=== PATIENT | male | born 1935 | race Caucasian/White ===

== ENCOUNTER 2018-04-20 04:59 | Observation (INO) | payer MEDICARE, OTHER ==
[~2018-04-20] VITALS: Ht 167.6 cm; Wt 80.2 kg
[~2018-04-20 04:59] MED LIST: ALBU90OI INH; LISI5 PO; METO25ER PO
[2018-04-20] MEDS ORDERED: GABA300 PO (05:14)
[2018-04-20] MEDS ORDERED: TRAZ100 PO (05:14)
[2018-04-20 05:45] LABS: BASOPHILS ABSOLUTE AUTO 0.05 K/mm3 (0.00-0.23); BASOPHILS PERCENT AUTO 0 % (0-2); EOSINOPHILS ABSOLUTE AUTO 0.03 K/mm3 (0.00-0.68); EOSINOPHILS PERCENT AUTO 0 % (0-6); Hematocrit 47.6 % (37.0-53.0); Hemoglobin 15.7 g/dL (13.5-17.5); IMMATURE GRAN ABSOLUTE AUTO 0.06 K/mm3 (0.00-0.10); IMMATURE GRAN PERCENT AUTO 1 % (0-1); LYMPHOCYTES ABSOLUTE AUTO 1.08 K/mm3 (0.84-5.20); LYMPHOCYTES PERCENT AUTO 9 % (21-46); MONOCYTES ABSOLUTE AUTO 0.49 K/mm3 (0.16-1.47); MONOCYTES PERCENT AUTO 4 % (4-13); Mean Corpuscular HGB 32.1 pg (26.0-34.0); Mean Corpuscular Volume 97 fL (80-100); Mean Platelet Volume 10.2 fL (9.1-12.4); NEUTROPHILS ABSOLUTE AUTO 10.55 K/mm3 (1.96-9.15); NEUTROPHILS PERCENT AUTO 86 % (41-73); Platelet Count 190 K/mm3 (150-400); RDW Coefficient Variation 13.1 % (11.7-14.2); RDW Standard Deviation 46.9 fL (35.1-46.3); Red Blood Cell Count 4.89 M/mm3 (4.30-5.90); White Blood Cell Count 12.26 K/mm3 (4.00-11.30)
[2018-04-20 06:04] LABS: Alanine Aminotransfer (ALT/SGP 24 U/L (12-78); Albumin, Blood 3.9 g/dL (3.4-5.0); Alk Phos 59 U/L (50-136); Anion Gap 8 mmol/L (6-16); Aspartate Aminotrans (AST/SGOT 19 U/L (12-37); Blood Urea Nitrogen 39 mg/dL (8-24); Bun/Creatinine Ratio 17.8 (12.0-20.0); CO2, Blood 24 mmol/L (21-32); Calcium, Blood 9.1 mg/dL (8.5-10.1); Chloride, Blood 107 mmol/L (98-108); Creatinine, Blood 2.19 mg/dL (0.60-1.20); Globulin, Blood 3.8 g/dL (2.2-4.0); Glomerular Filtration Rate 31 (60-); Glucose, Blood 140 mg/dL (70-99); Potassium, Blood 5.1 mmol/L (3.5-5.5); Sodium, Blood 139 mmol/L (136-145); Total Protein, Blood 7.7 g/dL (6.4-8.2); Troponin I <0.015 ng/mL (0.000-0.040)
[2018-04-20] MEDS ORDERED: CLOP75 PO (06:16)
[2018-04-20 06:36] LABS: International Normalized Ratio 1.02; Prothrombin Time Results 10.8 Sec (9.7-11.5)
[2018-04-20] MEDS ORDERED: [UNRECOGNIZED DRUG - CODE] PO (07:06)
[2018-04-20] MEDS ORDERED: ASPI81CH PO (07:48)
[2018-04-20] MEDS ORDERED: CEPH500 PO (11:22)
[2018-04-20] MEDS ORDERED: SACC250C PO (11:23)
--- NOTE | 2018-04-20 11:35 | NUR ---
PT TO DAY SURGERY VIA [facility]
--- NOTE | 2018-04-20 11:49 | NUR ---
History, Chart, Medications and Allergies reviewed before start of procedure. Patient confirms NPO status and agrees with scheduled surgery. Lungs clear T/O to Auscultation, THOUGH LIGHT AUDIBLE WHEEZES AT TIMES HEARD. PATIENT WILL LEAVE RIGHT HEARING DEVICE IN PLACE, STATES NO LONGER HAS A LEFT HEARING DEVICE BECAUSE IT QUIT WORKING SO HE QUIT WEARING IT. STATES NO FAMILY TO NOTIFY AT THIS TIME OF SURGERY IMPENDING. CLIP PREP AND CHLORHEXIDINE WIPE DONE BY RALEIGH CUMMINGS. NO JEWELRY IN PLACE AT THE TIME OF ADMIT TO [facility].
--- NOTE | 2018-04-20 11:54 | NUR ---
1150-NS IV TKO ADMINISTERED AT ADMIT TO [facility].
--- NOTE | 2018-04-20 12:09 | NUR ---
REPORT TO DOMINIK Junior RN.
--- NOTE | 2018-04-20 13:14 | NUR ---
04/20/18 1314 Vickie Baker PATIENT IS ON SCHEDULED ANTIBIOTICS.
--- NOTE | 2018-04-20 18:18 | NUR ---
SHIFT SUMMARY PT HAS DONE WELL SINCE SURGERY. SLOWLY ADVANCED DIET. DANGLING AT BEDSIDE. DENIES PAIN/N.V. ABD SITES WNL.
[2018-04-21 05:47] LABS: BASOPHILS ABSOLUTE AUTO 0.01 K/mm3 (0.00-0.23); BASOPHILS PERCENT AUTO 0 % (0-2); EOSINOPHILS PERCENT AUTO 0 % (0-6); Hematocrit 39.5 % (37.0-53.0); Hemoglobin 12.5 g/dL (13.5-17.5); IMMATURE GRAN ABSOLUTE AUTO 0.04 K/mm3 (0.00-0.10); IMMATURE GRAN PERCENT AUTO 0 % (0-1); LYMPHOCYTES ABSOLUTE AUTO 0.93 K/mm3 (0.84-5.20); LYMPHOCYTES PERCENT AUTO 7 % (21-46); MONOCYTES PERCENT AUTO 7 % (4-13); Mean Corpuscular HGB 31.8 pg (26.0-34.0); Mean Corpuscular HGB Conc 31.6 g/dL (31.5-36.5); Mean Platelet Volume 10.7 fL (9.1-12.4); NEUTROPHILS ABSOLUTE AUTO 10.81 K/mm3 (1.96-9.15); NEUTROPHILS PERCENT AUTO 85 % (41-73); Platelet Count 151 K/mm3 (150-400); RDW Coefficient Variation 13.2 % (11.7-14.2); RDW Standard Deviation 48.9 fL (35.1-46.3); Red Blood Cell Count 3.93 M/mm3 (4.30-5.90); White Blood Cell Count 12.69 K/mm3 (4.00-11.30)
[2018-04-21 05:48] LABS: Mean Corpuscular Volume 101 fL (80-100)
[2018-04-21 06:08] LABS: Bun/Creatinine Ratio 17.3 (12.0-20.0); Calcium, Blood 7.6 mg/dL (8.5-10.1); Creatinine, Blood 2.43 mg/dL (0.60-1.20); Potassium, Blood 5.3 mmol/L (3.5-5.5)
--- NOTE | 2018-04-21 06:10 | NUR ---
LYING IN SEMI FOWLERS WITH EYES CLOSED. DENIES PAIN OR FURTHER NEEDS AT THIS TIME. SAFETY MEASURES IN PLACE. WILL GIVE HAND OFF TO ONCOMING SHIFT USING SBAR.
[2018-04-21] MEDS ORDERED: GABA600 PO (08:44)
[2018-04-21] MEDS ORDERED: LISI5 PO (08:45)
[2018-04-21] MEDS ORDERED: TRAZ100 PO (08:50)
[2018-04-21] MEDS ORDERED: FLUT1DIS8 INH (08:51)
[2018-04-21] MEDS ORDERED: FISH OIL 1,001000 MG PO (08:53)
[2018-04-21] MEDS ORDERED: CENTURY ADULTS1 EACH PO (08:53)
[2018-04-21] MEDS ORDERED: VITAMIN D-32000 UNIT PO (08:54)
[2018-04-21] MEDS ORDERED: ATOR40TA PO (08:55)
[2018-04-21] MEDS ORDERED: INSULANPEN SC ×4 (08:55→08:59)
[2018-04-21] MEDS ORDERED: INSULANPEN (08:57)
[2018-04-21] MEDS ORDERED: CEPH500 PO (09:10)
[2018-04-21] MEDS ORDERED: SACC250C PO (09:11)
[2018-04-21] MEDS ORDERED: TYLENOL325 MG PO (09:13)
--- NOTE | 2018-04-21 12:41 | NUR ---
DISCHARGE SUMMARY PT LEFT FLOOR TO GO HOME WITH ALL PERSONAL POSSESSIONS INCLUDING DISCHARGE PACKET WITH EDUCATION FOR [employer] AND DIABETES MANAGEMENT. DISCHARGE INSTRUCTIONS GIVEN. PT REPORTED UNDERSTANDING THOSE INSTRUCTIONS INCLUDING FU APPT WITH PCP 1-24-2:30PM, FU WITH SURGEON IN 2 WKS, SPLINTING/ROLLING W/COUGH/ACTIVITY. IV DC'D.
== END 2018-04-21 13:05 | disposition home or self-care (01) ==
LOC: ER 04:59 → SURS 05:00 → ER 06:39 → SURS 07:30
PROVIDERS: Emergency Medicine; Family Medicine; Surgery; ADMIT Hospitalist
PROC: 0FT44ZZ Resection of Gallbladder, Percutaneous Endoscopic Approach (ICD-10-PCS; principal; 2018-04-20 11:45)
DX: K80.12 Calculus of gallbladder with acute and chronic cholecystitis without obstruction (principal); I12.9 Hypertensive chronic kidney disease with stage 1 through stage 4 chronic kidney disease, or unspecified chronic kidney disease; N18.3 Chronic kidney disease, stage 3 (moderate); E78.5 Hyperlipidemia, unspecified; J44.9 Chronic obstructive pulmonary disease, unspecified; Z85.528 Personal history of other malignant neoplasm of kidney; Z90.5 Acquired absence of kidney; Z87.891 Personal history of nicotine dependence; Z79.02 Long term (current) use of antithrombotics/antiplatelets; Z79.899 Other long term (current) drug therapy
CPT/HCPCS: 36415; 74176; 80048; 80053; 82947; 83605; 83690; 83735; 84484; 85025; 85610; 88304; 93005; 93010; 94640; 94760; 96361; 96365; 96375; 97110; 97161; 99285-25; C1729; G0378; J0696; J1100; J1170; J2270; J2370; J2405; J2543; J2710; J3010; J7030; J7120

== ENCOUNTER 2021-09-18 03:15 | Emergency (ER) | payer MEDICARE ==
[~2021-09-18] VITALS: Ht 172.7 cm; Wt 81.7 kg
[~2021-09-18 03:15] MED LIST changes: +ASPI81CH PO; +ATOR40TA PO; +CENTURY ADULTS1 EACH PO; +CEPH500 PO; +CLOP75 PO; +FISH OIL 1,001000 MG PO; +FLUT1DIS8 INH; +GABA300 PO; +GABA600 PO; +INSULANPEN; +INSULANPEN SC; +ONDA4 PO; +SACC250C PO; +TRAZ100 PO; +TYLENOL325 MG PO; +VITAMIN D-32000 UNIT PO; +[UNRECOGNIZED DRUG - CODE] PO
[2021-09-18 03:41] LABS: Base Excess Venous -5.5 mmol/L; Bicarbonate Venous 19.5 mmol/L (24.0-30.0); PCO2 Venous 51.7 mmHg (38-42); pH Blood Venous 7.24 (7.34-7.37)
[2021-09-18 03:45] LABS: BASOPHILS ABSOLUTE AUTO 0.03 K/mm3 (0.00-0.23); BASOPHILS PERCENT AUTO 0 % (0-2); EOSINOPHILS ABSOLUTE AUTO 0.01 K/mm3 (0.00-0.68); EOSINOPHILS PERCENT AUTO 0 % (0-6); Hematocrit 25.4 % (37.0-53.0); Hemoglobin 7.9 g/dL (13.5-17.5); IMMATURE GRAN ABSOLUTE AUTO 0.07 K/mm3 (0.00-0.10); IMMATURE GRAN PERCENT AUTO 1 % (0-1); LYMPHOCYTES ABSOLUTE AUTO 1.44 K/mm3 (0.84-5.20); LYMPHOCYTES PERCENT AUTO 11 % (21-46); MONOCYTES PERCENT AUTO 7 % (4-13); Mean Corpuscular HGB 31.5 pg (26.0-34.0); Mean Corpuscular HGB Conc 31.1 g/dL (31.5-36.5); Mean Corpuscular Volume 101 fL (80-100); Mean Platelet Volume 10.7 fL (9.1-12.4); NEUTROPHILS ABSOLUTE AUTO 11.07 K/mm3 (1.96-9.15); NEUTROPHILS PERCENT AUTO 81 % (41-73); Platelet Count 346 K/mm3 (150-400); RDW Coefficient Variation 13.5 % (11.7-14.2); RDW Standard Deviation 49.7 fL (35.1-46.3); Red Blood Cell Count 2.51 M/mm3 (4.30-5.90); White Blood Cell Count 13.62 K/mm3 (4.00-11.30)
[2021-09-18 04:16] LABS: Albumin, Blood 2.4 g/dL (3.4-5.0); Albumin/Globulin Ratio 0.7 (0.8-1.8); Bilirubin, Total 0.5 mg/dL (0.1-1.0); Bun/Creatinine Ratio 28.6 (12.0-20.0); Creatinine, Blood 2.87 mg/dL (0.60-1.20); Globulin, Blood 3.3 g/dL (2.2-4.0); Potassium, Blood 7.6 mmol/L (3.5-5.5); Total Protein, Blood 5.7 g/dL (6.4-8.2)
[2021-09-18 04:40] LABS: Influenza A, PCR NEGATIVE (NEGATIVE); Influenza B, PCR NEGATIVE (NEGATIVE); Resp Syncytial Virus, PCR NEGATIVE (NEGATIVE); SARS-Cov-2 (COVID-19) PCR, MMC NEGATIVE (NEGATIVE)
[2021-09-18 06:00] LABS: Base Excess Venous -8.8 mmol/L; Bicarbonate Venous 17.3 mmol/L (24.0-30.0); PCO2 Venous 45.7 mmHg (38-42); pH Blood Venous 7.22 (7.34-7.37)
[2021-09-18 06:01] LABS: International Normalized Ratio 1.23; Prothrombin Time Results 12.7 Sec (9.7-11.5)
== END 2021-09-18 06:56 | disposition short-term general hospital (02) ==
LOC: ER 03:15
PROVIDERS: Emergency Medicine
DX: J96.92 Respiratory failure, unspecified with hypercapnia (principal); J96.91 Respiratory failure, unspecified with hypoxia; J44.1 Chronic obstructive pulmonary disease with (acute) exacerbation; K92.2 Gastrointestinal hemorrhage, unspecified; D50.0 Iron deficiency anemia secondary to blood loss (chronic); E87.5 Hyperkalemia; A41.9 Sepsis, unspecified organism; J18.9 Pneumonia, unspecified organism; E87.2 Acidosis; I95.9 Hypotension, unspecified; E83.51 Hypocalcemia; I12.9 Hypertensive chronic kidney disease with stage 1 through stage 4 chronic kidney disease, or unspecified chronic kidney disease; N18.30 Chronic kidney disease, stage 3 unspecified; I25.10 Atherosclerotic heart disease of native coronary artery without angina pectoris; Z87.891 Personal history of nicotine dependence; Z79.899 Other long term (current) drug therapy; Z20.822 Contact with and (suspected) exposure to COVID-19
CPT/HCPCS: 0241U; 36415; 71045; 80053; 82803; 82947; 83605; 83690; 83880; 84132; 84145; 84484; 85025; 85610; 85730; 86850; 86900; 86901; 86923; 93005; 93010; 94640; 94644; 94660; 94664; A9270; C9113; J0456; J0610; J0696; J1815; J2354; J2405; J2930; J7030; J7050; J7120; P9016

== ENCOUNTER → 2022-07-11 | Outpatient (CLI) | payer MEDICARE ==
[2022-07-11 19:07] LABS: Percent Saturation 34.1 % (20.0-50.0)
== END | disposition home or self-care (01) ==
LOC: LAB SHORT 17:06 → LAB 17:06
PROVIDERS: Internal Medicine Hematology & Oncology
DX: D50.9 Iron deficiency anemia, unspecified (principal)
CPT/HCPCS: 82728; 83540; 83550

== ENCOUNTER → 2022-09-27 | Outpatient (CLI) | payer MEDICARE ==
[2022-09-27 14:28] LABS: Adenovirus F 40/41 Not Detected (NOT DETECT); Astrovirus Not Detected (NOT DETECT); Campylobacter Sp Not Detected (NOT DETECT); Cryptosporidium Not Detected (NOT DETECT); Cyclospora Cayetanensis Not Detected (NOT DETECT); E. Coli O157 Not Detected (NOT DETECT); Entamoeba Histolytica Not Detected (NOT DETECT); Enteroaggregative E. coli-EAEC Not Detected (NOT DETECT); Enteropathogenic E. coli-EPEC Not Detected (NOT DETECT); Enterotoxigenic E. coli-ETEC Not Detected (NOT DETECT); Giardia Lamblia Not Detected (NOT DETECT); Norovirus GI/GII Not Detected (NOT DETECT); Plesiomonas Shigelloides Not Detected (NOT DETECT); Rotavirus A Not Detected (NOT DETECT); Salmonella Sp Not Detected (NOT DETECT); Sapovirus Not Detected (NOT DETECT); Shiga Toxin-prod E. coli-STEC Not Detected (NOT DETECT); Shigella/Enteroin E. coli-EIEC Not Detected (NOT DETECT); Vibrio Cholerae Not Detected (NOT DETECT); Vibrio Sp Not Detected (NOT DETECT); Yersinia Enterocolitica Not Detected (NOT DETECT)
== END ==
LOC: LAB 11:25 → LAB SHORT 11:25
PROVIDERS: Internal Medicine Gastroenterology
DX: R19.7 Diarrhea, unspecified (principal)
CPT/HCPCS: 87507

== ENCOUNTER 2022-11-07 13:15 | Observation (INO) | payer MEDICARE ==
[~2022-11-07] VITALS: Ht 167.6 cm; Wt 72.1 kg
[~2022-11-07 13:15] MED LIST changes: +CALC.25 PO; +DUTA.5; +INSULANI; +TORSE20 PO
[2022-11-07 14:15] LABS: BASOPHILS ABSOLUTE AUTO 0.05 K/mm3 (0.00-0.23); BASOPHILS PERCENT AUTO 1 % (0-2); EOSINOPHILS ABSOLUTE AUTO 0.46 K/mm3 (0.00-0.68); EOSINOPHILS PERCENT AUTO 7 % (0-6); Hematocrit 35.5 % (37.0-53.0); Hemoglobin 11.4 g/dL (13.5-17.5); IMMATURE GRAN ABSOLUTE AUTO 0.03 K/mm3 (0.00-0.10); IMMATURE GRAN PERCENT AUTO 0 % (0-1); LYMPHOCYTES ABSOLUTE AUTO 1.61 K/mm3 (0.84-5.20); LYMPHOCYTES PERCENT AUTO 24 % (21-46); MONOCYTES ABSOLUTE AUTO 0.59 K/mm3 (0.16-1.47); MONOCYTES PERCENT AUTO 9 % (4-13); Mean Corpuscular HGB 32.4 pg (26.0-34.0); Mean Corpuscular HGB Conc 32.1 g/dL (31.5-36.5); Mean Corpuscular Volume 101 fL (80-100); Mean Platelet Volume 10.5 fL (9.1-12.4); NEUTROPHILS ABSOLUTE AUTO 4.03 K/mm3 (1.96-9.15); NEUTROPHILS PERCENT AUTO 60 % (41-73); Platelet Count 197 K/mm3 (150-400); RDW Coefficient Variation 12.9 % (11.7-14.2); RDW Standard Deviation 47.7 fL (35.1-46.3); Red Blood Cell Count 3.52 M/mm3 (4.30-5.90); White Blood Cell Count 6.77 K/mm3 (4.00-11.30)
[2022-11-07 14:36] LABS: Albumin, Blood 3.6 g/dL (3.4-5.0); Albumin/Globulin Ratio 1.1 (0.8-1.8); Bilirubin, Total 0.4 mg/dL (0.1-1.0); Bun/Creatinine Ratio 19.3 (12.0-20.0); Calcium, Blood 8.5 mg/dL (8.5-10.1); Creatinine, Blood 2.44 mg/dL (0.60-1.20); Globulin, Blood 3.4 g/dL (2.2-4.0); Potassium, Blood 5.6 mmol/L (3.5-5.5)
--- NOTE | 2022-11-07 18:44 | NUR ---
REPORT RECEIVED FROM DESEAN RN IN ER. PT TO BE TX TO ROOM 329. AWAITING PT ARRIVAL. WILL REPORT TO ONCOMING RN.
[2022-11-07 19:15] VITALS: BP 126/58
--- NOTE | 2022-11-07 19:26 | NUR ---
PT EDUCATED ON SMOKING POLICY AND DANGERS OF USING SMOKING/IGNITION MATERIALS. 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 PT HANDED OVER EMPLOYEE BENEFITS INSURANCE AGENT AND WAS LOCKED UP IN DRAWER OUTSIDE OF ROOM. PT VU AND WAS COOPERATIVE.
[2022-11-07 19:56] LABS: Hematocrit 35.6 % (37.0-53.0); Hemoglobin 11.5 g/dL (13.5-17.5)
[2022-11-08] VITALS (11 sets, daily range): BP systolic 94–125; BP diastolic 43–59
[2022-11-08 02:13] LABS: Hematocrit 32.1 % (37.0-53.0); Hemoglobin 10.2 g/dL (13.5-17.5)
[2022-11-08 02:31] LABS: Bun/Creatinine Ratio 18.9 (12.0-20.0); Creatinine, Blood 2.43 mg/dL (0.60-1.20); Potassium, Blood 4.9 mmol/L (3.5-5.5)
--- NOTE | 2022-11-08 03:46 | NUR ---
ADMISSION NOTE PATIENT ARRIVED TO UNIT FROM ED AT 18:45. A/Ox4, PLEASANT/COOPERATIVE. DENIES PAIN NOR DISCOMFORT. ON RA AT TIME OF ARRIVAL, PLACED ON 2L NC LATER ON AT HS. PATIENT STATES HE IS NORMALLY ON 2L NC AT HOME WHILE ASLEEP. DENIES SOB, NOR DIFFICULTY BREATHING, STATES Hx OF COPD, DOES GET SOB AT TIMES WHEN WALKING. ORIENTED PATIENT TO UNIT, ROOM AND CALL LIGHT USE. THOUGH INDEPENDANT, ENCOURAGED PATIENT TO ALWAYS CALL FIRST IF NEEDING TO GET UP TO THE BATHROOM DUE TO CONTINUOUS IV INFUSION, VERBALIZED UNDERSTANDING. NO C/O N/V, STATES IS HAVING FREQUENT GAS. STATES RECENT LOOSE STOOLS THAT ARE DARK. HERE FOR UPPER GI BLEED, PENDING EGD IN MORNING, NPO STATUS. BED IN LOW POSITION, CALL LIGHT WITHIN REACH.
--- NOTE | 2022-11-08 05:37 | NUR ---
SHIFT SUMMARY PATIENT ALERT, NO COMPLAINTS VERBALIZED. NO ACUTE CHAGNES SINCE ARRIVAL TO FLOOR. SEE ADMISSION NOTE. PATIENT RESTING SOUNDLY IN BED AT THIS TIME IN NO ACUTE DISTRESS, BED LOCKED, IN LOW POSITION, CALL LIGHT WITHIN REACH.
[2022-11-08 08:28] LABS: Hematocrit 31.3 % (37.0-53.0); Hemoglobin 10.1 g/dL (13.5-17.5)
--- NOTE | 2022-11-08 08:36 | NUR ---
PT CBG 86. DISCUSSED WITH DR. ALLEN. OK TO GIVE 7-UP AT THIS TIME PT CAN AVE WATER AND ICE CIPS UNTIL 10AM FOR EGD TODAY. PROVIDED 340 CC CUP OF 7-UP.
[2022-11-08 14:14] LABS: Hematocrit 31.1 % (37.0-53.0); Hemoglobin 9.8 g/dL (13.5-17.5)
--- NOTE | 2022-11-08 14:55 | NUR ---
11/08/[address] PUSHPA ROSAS RECORD FOR SEDATION
--- NOTE | 2022-11-08 16:24 | NUR ---
Pt back from procedure. Pt A&OX4 and reports 8/10 pain in his abdomen. Offered therapeutic listening as Pt reports being , has 2 sons and several grandchildren. He reports family is supportive. Engaged in therapeutic discussion regarding code status wishes. Educated on life sustaining treatments including risks and implications to CPR/Intubation. Pt reports his wishes are full code. Pt also requesting food and states he has not eaten since Friday. VOICER in to perform vitals and will get Pt something to eat. Ended visit. Spoke with Primary RN Anna and relayed Pt's pain. Palliative Care will remain available
[2022-11-08 17:26] LABS: Hematocrit 35.2 % (37.0-53.0); Hemoglobin 11.1 g/dL (13.5-17.5)
[2022-11-08] MEDS ORDERED: PANT20 PO (19:24)
== END 2022-11-08 19:59 | disposition home or self-care (01) ==
LOC: ER 13:15 → MEDS 13:16 → ER 13:16 → MEDS 13:16
PROVIDERS: Family Medicine; Internal Medicine Gastroenterology; Student in an Organized Health Care Education/Training Program; ADMIT Internal Medicine
PROC: 0DJ08ZZ Inspection of Upper Intestinal Tract, Via Natural or Artificial Opening Endoscopic (ICD-10-PCS; principal; 2022-11-08 15:00)
DX: K92.1 Melena (principal); I25.10 Atherosclerotic heart disease of native coronary artery without angina pectoris; E11.51 Type 2 diabetes mellitus with diabetic peripheral angiopathy without gangrene; J44.9 Chronic obstructive pulmonary disease, unspecified; N18.4 Chronic kidney disease, stage 4 (severe); E11.22 Type 2 diabetes mellitus with diabetic chronic kidney disease; I12.9 Hypertensive chronic kidney disease with stage 1 through stage 4 chronic kidney disease, or unspecified chronic kidney disease; I25.2 Old myocardial infarction; Z85.46 Personal history of malignant neoplasm of prostate; Z87.891 Personal history of nicotine dependence; Z88.8 Allergy status to other drugs, medicaments and biological substances
CPT/HCPCS: 36415; 80048; 80053; 82947; 85014; 85018; 85025; 86850; 86900; 86901; 94640; 94664; 94760; 96365; 96366; 96376; 99285-25; A9270; C9113; G0378; J1815; J2704; J7030; J7120

== ENCOUNTER 2023-06-24 07:16 | Day surgery (SDC) | payer MEDICARE ==
[~2023-06-24] VITALS: Ht 167.6 cm; Wt 72.6 kg
[~2023-06-24 07:16] MED LIST changes: -DUTA.5; +DUTA.5 PO; -GABA600 PO; +PANT20 PO
[2023-06-24 07:34] VITALS: BP 110/45
[2023-06-24 07:37] VITALS: BP 110/45
[2023-06-24] MEDS ORDERED: NS 250 ML IV ONE (07:42)
[2023-06-24] MEDS ORDERED: Heparin Sodium 1000 Units/ML 10ML MDV ONE (07:42)
[2023-06-24] MEDS ORDERED: HYDROCODONE-AC1 EA19 PO (07:50)
[2023-06-24] MEDS ORDERED: INSULANI SC (07:51)
[2023-06-24] MEDS ORDERED: Midazolam HCl 1MG / ML 2ML Vial ONE (08:07)
[2023-06-24] MEDS ORDERED: NS 500 ML IV ONE (08:07)
[2023-06-24] MEDS ORDERED: FentaNYL Citrate 50 MCG/ML 2 ML Injection ONE (08:07)
[2023-06-24] MEDS ORDERED: Heparin Sodium 10,000 Units/ML 1ML MDV ONE (08:44)
[2023-06-24 09:05] VITALS: BP 105/49
--- NOTE | 2023-06-24 10:22 | NUR ---
PT VERBALIZED UNDERSTANDING OF WRITTEN AND VERBAL D/C INST. IV REMOVED. PT TAKEN OUT OF THE HRT CENTER VIA W/C.
[2023-07-16] MEDS ORDERED: THERA-D2000 UNIT PO (14:03)
[2023-07-16] MEDS ORDERED: ALEVAZOL56.7 G1 TOP (14:04)
[2023-07-16] MEDS ORDERED: ROPI1 PO (14:05)
[2023-07-16] MEDS ORDERED: TRAZ150T57 PO (14:06)
[2023-07-21] MEDS ORDERED: FLUT1DIS8 INH (12:00)
== END 2023-06-24 10:15 | disposition home or self-care (01) ==
LOC: MHTC 07:16
DX: I13.2 Hypertensive heart and chronic kidney disease with heart failure and with stage 5 chronic kidney disease, or end stage renal disease (principal); E11.22 Type 2 diabetes mellitus with diabetic chronic kidney disease; I50.32 Chronic diastolic (congestive) heart failure; N18.6 End stage renal disease; E11.51 Type 2 diabetes mellitus with diabetic peripheral angiopathy without gangrene; E78.5 Hyperlipidemia, unspecified; J44.9 Chronic obstructive pulmonary disease, unspecified; I25.10 Atherosclerotic heart disease of native coronary artery without angina pectoris; Z87.891 Personal history of nicotine dependence; Z88.8 Allergy status to other drugs, medicaments and biological substances; Z79.899 Other long term (current) drug therapy
CPT/HCPCS: 36561; 76937; 99152; 99153; C1750; C1769; C1894; J1644; J2250; J3010; J7040; J7050

== ENCOUNTER 2023-07-17 08:02 | Day surgery (SDC) | payer MEDICARE ==
[2023-07-17] VITALS (7 sets, daily range): BP systolic 112–142; BP diastolic 52–72
[~2023-07-17] VITALS: Ht 167.6 cm; Wt 71.7 kg
[~2023-07-17 08:02] MED LIST changes: +ALEVAZOL56.7 G1 TOP; +HYDROCODONE-AC1 EA19 PO; +INSULANI SC; +ROPI1 PO; +THERA-D2000 UNIT PO; +TRAZ150T57 PO
[2023-07-17] MEDS ORDERED: Ventolin5 MG/1 ML INH (10:05)
[2023-07-17] MEDS ORDERED: NS 250 ML IV ONE (10:30)
[2023-07-17] MEDS ORDERED: Heparin Sodium 1000 Units/ML 10ML MDV ONE (10:30)
[2023-07-17] MEDS ORDERED: Midazolam HCl 1MG / ML 2ML Vial ONE (10:39)
[2023-07-17] MEDS ORDERED: FentaNYL Citrate 50 MCG/ML 2 ML Injection ONE (10:40)
[2023-07-17] MEDS ORDERED: NS 500 ML IV ONE (10:40)
--- NOTE | 2023-07-17 11:43 | NUR ---
pt back to recovery from lab. permcath site soft and non-tender per pt. no bleeding noted. pt a&o.
--- NOTE | 2023-07-17 12:00 | NUR ---
PATIENT SITTING UPRIGHT IN BED, TOLERATING PO INTAKE WELL. VSS ON RA. PERMACATH SITE C/D/I SOFT/NONTENDER. PATIENT DENYING ANY PAIN
--- NOTE | 2023-07-17 12:40 | NUR ---
DISCHARGE INSTRUCTIONS REVIEWED WITH PATIENT. ALL QUESTIONS WERE ANSWERED. VSS ON RA. PIV REMOVED WITHOUT DIFFICULTY, CATHETER INTACT. PATIENT WHEELED TO HOSPITAL ENTRANCE AND FAMILY ABLE TO PROVIDE TRANSPORTATION HOME. PATIENT INSTRUCTED TO GO TO DIALYSIS AFTER THIS PROCEDURE.
[2023-07-21] MEDS ORDERED: FLUT1DIS8 INH (12:00)
== END 2023-07-17 12:40 | disposition home or self-care (01) ==
LOC: MHTC 08:02
DX: T82.41XA Breakdown (mechanical) of vascular dialysis catheter, initial encounter (principal); Y71.8 Miscellaneous cardiovascular devices associated with adverse incidents, not elsewhere classified; I13.2 Hypertensive heart and chronic kidney disease with heart failure and with stage 5 chronic kidney disease, or end stage renal disease; E11.22 Type 2 diabetes mellitus with diabetic chronic kidney disease; N18.6 End stage renal disease; I50.32 Chronic diastolic (congestive) heart failure; J44.9 Chronic obstructive pulmonary disease, unspecified; E78.5 Hyperlipidemia, unspecified; Z87.891 Personal history of nicotine dependence; Z88.8 Allergy status to other drugs, medicaments and biological substances; Z79.82 Long term (current) use of aspirin; Z79.899 Other long term (current) drug therapy
CPT/HCPCS: 36581; 75827; 99152; 99153; C1750; C1769; J1644; J2250; J3010; J7040; J7050; Q9967

== ENCOUNTER 2023-07-22 07:01 | Day surgery (SDC) | payer MEDICARE ==
[~2023-07-22] VITALS: Ht 198.1 cm; Wt 71.7 kg
[~2023-07-22 07:01] MED LIST changes: +Ventolin5 MG/1 ML INH
[2023-07-22 08:00] VITALS: BP 104/65
[2023-07-22 08:27] VITALS: BP 104/65
[2023-07-22] MEDS ORDERED: NS 250 ML IV ONE (09:39)
[2023-07-22] MEDS ORDERED: Heparin Sodium 1000 Units/ML 10ML MDV ONE (09:39)
[2023-07-22] MEDS ORDERED: NS 500 ML IV ONE (09:58)
[2023-07-22 10:51] VITALS: BP 154/81
--- NOTE | 2023-07-22 10:51 | NUR ---
PATIENT ARRIVED TO RECOVERY ROOM, ISTTING UPRIGHT IN BED. L CHEST PORT C/D/I SOFT/NONTENDER, NO EVIDENCE OF BLEEDING. VSS ON RA. PATIENT CONVERSING APPROPRIATELY.
[2023-07-22 10:53] VITALS: BP 137/80
--- NOTE | 2023-07-22 11:03 | NUR ---
PATIENT DISCHARGED HOME AT THIS TIME. PIV REMOVED WITHOUT DIFFICULTY, CATHETER INTACT. VSS ON RA. R PERMACATH SITE C/D/I SOFT/NONTENDER, NO EVIDENCE OF BLEEDING. PATIENT GETTING DRESSED WITHOUT DIFFICULTY. DISCHARGE INSTRUCTIONS REVIEWED WITH PATIENT. PATIENT WHEELED TO HOSPITAL ENTRANCE AND SON ABLE TO TRANSPORT PATIENT TO DIALYSIS APPOINTMENT AND HOME
== END 2023-07-22 11:09 | disposition home or self-care (01) ==
LOC: MHTC 07:01
DX: T82.898A Other specified complication of vascular prosthetic devices, implants and grafts, initial encounter (principal); Y71.8 Miscellaneous cardiovascular devices associated with adverse incidents, not elsewhere classified; I13.2 Hypertensive heart and chronic kidney disease with heart failure and with stage 5 chronic kidney disease, or end stage renal disease; E11.22 Type 2 diabetes mellitus with diabetic chronic kidney disease; N18.6 End stage renal disease; I50.32 Chronic diastolic (congestive) heart failure; J44.9 Chronic obstructive pulmonary disease, unspecified; E11.51 Type 2 diabetes mellitus with diabetic peripheral angiopathy without gangrene; E78.5 Hyperlipidemia, unspecified; Z99.2 Dependence on renal dialysis; Z87.891 Personal history of nicotine dependence; Z88.8 Allergy status to other drugs, medicaments and biological substances; Z79.82 Long term (current) use of aspirin; Z79.899 Other long term (current) drug therapy
CPT/HCPCS: 82947; C1750; C1769; J1644; J7040; J7050; Q9967

== ENCOUNTER 2023-10-03 08:55 | Inpatient (IN) | payer MEDICARE ==
[~2023-10-03] VITALS: Ht 167.6 cm; Wt 70.3 kg
[2023-10-03] MEDS ORDERED: Pantoprazole Sodium 40 MG Injection IV ONE (09:20)
[2023-10-03 09:39] LABS: BASOPHILS ABSOLUTE AUTO 0.03 K/mm3 (0.00-0.23); BASOPHILS PERCENT AUTO 1 % (0-2); EOSINOPHILS ABSOLUTE AUTO 0.54 K/mm3 (0.00-0.68); EOSINOPHILS PERCENT AUTO 8 % (0-6); Hematocrit 32.5 % (37.0-53.0); Hemoglobin 10.7 g/dL (13.5-17.5); IMMATURE GRAN ABSOLUTE AUTO 0.02 K/mm3 (0.00-0.10); IMMATURE GRAN PERCENT AUTO 0 % (0-1); LYMPHOCYTES ABSOLUTE AUTO 1.33 K/mm3 (0.84-5.20); LYMPHOCYTES PERCENT AUTO 20 % (21-46); MONOCYTES ABSOLUTE AUTO 0.59 K/mm3 (0.16-1.47); MONOCYTES PERCENT AUTO 9 % (4-13); Mean Corpuscular HGB 32.6 pg (26.0-34.0); Mean Corpuscular HGB Conc 32.9 g/dL (31.5-36.5); Mean Corpuscular Volume 99 fL (80-100); Mean Platelet Volume 10.3 fL (9.1-12.4); NEUTROPHILS ABSOLUTE AUTO 4.04 K/mm3 (1.96-9.15); NEUTROPHILS PERCENT AUTO 62 % (41-73); Platelet Count 189 K/mm3 (150-400); RDW Coefficient Variation 14.4 % (11.7-14.2); RDW Standard Deviation 52.6 fL (35.1-46.3); Red Blood Cell Count 3.28 M/mm3 (4.30-5.90); White Blood Cell Count 6.55 K/mm3 (4.00-11.30)
[2023-10-03 09:43] LABS: Albumin, Blood 3.5 g/dL (3.4-5.0); Albumin/Globulin Ratio 1.1 (0.8-1.8); Bilirubin, Total 0.8 mg/dL (0.1-1.0); Bun/Creatinine Ratio 17.4 (12.0-20.0); Calcium, Blood 8.8 mg/dL (8.5-10.1); Creatinine, Blood 2.76 mg/dL (0.60-1.20); Globulin, Blood 3.2 g/dL (2.2-4.0); Phosphorus, Blood 2.5 mg/dL (2.5-4.9); Potassium, Blood 3.8 mmol/L (3.5-5.5); Total Protein, Blood 6.7 g/dL (6.4-8.2)
[2023-10-03] MEDS ORDERED: Ondansetron HCl 2 MG / ML 2ML Vial IV PRN (10:50)
[2023-10-03] MEDS ORDERED: Albuterol 2.5 MG/3 ML VIAL INH PRN (11:15)
[2023-10-03] MEDS ORDERED: Mometasone/Formoterol MDI 200/5 mcg 13 GM INH SCH (11:15)
[2023-10-03] MEDS ORDERED: Albuterol HFA200 ACT/6.7 GM INH INH PRN (11:15)
[2023-10-03 12:52] VITALS: BP 158/70
[2023-10-03 14:20] VITALS: BP 136/71
--- NOTE | 2023-10-03 15:55 | NUR ---
ADMIT: REPORT RECEIVED FROM ED RN. PT TO UNIT AT ABOUT 1250, A/O, VSS. PT ABLE TO AMBULATE FROM GURNEY TO BED. SOB ON EXERTION, SPO2 86% ON RA, 2L 02 APPLIED AND SP02 INCREASED TO 94%. BREATHING WNL AT REST. PT OREINTED TO ROOM AND CALL LIGHT. BED ALARM SET FOR SAFETY.
--- NOTE | 2023-10-03 15:59 | NUR ---
PT TO OR AT THIS TIME
--- NOTE | 2023-10-03 16:03 | NUR ---
PT TO DAY SURGERY FOR EGD Diagnostic W/ MAC WITH DR LANE. PLAN OF CARE DISCUSSED WITH PT.
[2023-10-03 16:04] VITALS: BP 127/81
[2023-10-03] MEDS ORDERED: propofoL 40 ML IV ONE (16:08)
[2023-10-03] MEDS ORDERED: NS 1,000 ML IV SCH (16:10)
--- NOTE | 2023-10-03 16:11 | NUR ---
PT TO DAY SURGERY WITH 20G IV TO LEFT FA
--- NOTE | 2023-10-03 16:26 | NUR ---
10/03/23 1626 Rachna Turenr History, Chart, Medications and Allergies reviewed before start of procedure.MONITOR INTACT WITH CONTINUOUS PULSE OXIMETRY, CONTINUOUS END TITAL CO2, AND INTERMITTENT BLOOD PRESSURE.3-LEAD EKG REVIEWED WITH PHYSICIAN PRIOR TO START OF PROCEDURE.O2 VIA POM INTACT THROUGHOUT SEDATION/PROCEDURE.Bite Block Placed. PROVIDING MAC-SEE ANESTHESIA RECORD.
[2023-10-03] MEDS ORDERED: Pantoprazole Sodium 40 MG Injection IV SCH (16:30)
[2023-10-03 17:01] VITALS: BP 122/63
--- NOTE | 2023-10-03 17:11 | NUR ---
POST OP: REPORT RECEIVED FROM SWEATBAND FLANGER. PT TO UNIT AT ABOUT 1700. PT IS A/O, VSS, DENIES PAIN AT THIS TIME. CALL LIGHT IN REACH, WILL CTM
[2023-10-03 17:39] VITALS: BP 132/60
[2023-10-03 19:44] VITALS: BP 123/67
[2023-10-03] MEDS ORDERED: rOPINIRole HCl 0.25 MG Tab PO SCH (21:00)
[2023-10-03] MEDS ORDERED: Gabapentin 300 MG Cap PO SCH (21:00)
[2023-10-03] MEDS ORDERED: Insulin Glargine-Yfgn 100 Unit/mL 3 ML SYR SC SCH (21:00)
[2023-10-03] MEDS ORDERED: TraZODone HCl 50 MG Tab PO SCH (22:25)
[2023-10-04] VITALS (17 sets, daily range): BP systolic 88–122; BP diastolic 54–68
--- NOTE | 2023-10-04 03:05 | NUR ---
CONSULTED W/ BENITO RN NICU REGARDING TRAZODONE USE. PT STATES HE HAS TAKEN 150MG TRAZODONE FOR 20 YRS BEFORE BED TO HELP SLEEP. BENITO RN NICU RESTARTED DAILY BEDTIME ORDER FOR TRAZODONE.
[2023-10-04 05:36] LABS: BASOPHILS ABSOLUTE AUTO 0.04 K/mm3 (0.00-0.23); BASOPHILS PERCENT AUTO 1 % (0-2); EOSINOPHILS ABSOLUTE AUTO 0.67 K/mm3 (0.00-0.68); EOSINOPHILS PERCENT AUTO 9 % (0-6); Hematocrit 29.6 % (37.0-53.0); Hemoglobin 9.9 g/dL (13.5-17.5); IMMATURE GRAN ABSOLUTE AUTO 0.02 K/mm3 (0.00-0.10); IMMATURE GRAN PERCENT AUTO 0 % (0-1); LYMPHOCYTES ABSOLUTE AUTO 1.57 K/mm3 (0.84-5.20); LYMPHOCYTES PERCENT AUTO 22 % (21-46); MONOCYTES PERCENT AUTO 10 % (4-13); Mean Corpuscular HGB 33.2 pg (26.0-34.0); Mean Corpuscular HGB Conc 33.4 g/dL (31.5-36.5); Mean Corpuscular Volume 99 fL (80-100); Mean Platelet Volume 10.5 fL (9.1-12.4); NEUTROPHILS ABSOLUTE AUTO 4.12 K/mm3 (1.96-9.15); NEUTROPHILS PERCENT AUTO 58 % (41-73); Platelet Count 213 K/mm3 (150-400); RDW Coefficient Variation 14.4 % (11.7-14.2); Red Blood Cell Count 2.98 M/mm3 (4.30-5.90); White Blood Cell Count 7.12 K/mm3 (4.00-11.30)
[2023-10-04 05:48] LABS: International Normalized Ratio 1.06; Prothrombin Time Results 11.3 Sec (9.7-11.5)
--- NOTE | 2023-10-04 06:06 | NUR ---
SHIFT SUMMARY PT IS A/O X4, IND/SBA TO BR. O2 SATS >92% ON 2LNC, PT REPORTS DYSPNEA W/ EXERTION THAT IS HIS BASELINE DUE TO COPD. MULTIPLE LOOSE BOWEL MOVEMENTS NOTED, DARK BROWN TO BLACK. PT TOLERATING REG DIET WITHOUT N/V. PT DOES NOT REPORT ANY ABD PAIN. ABLE TO REST MOST OF SHIFT. VOIDING APPROPRIATELY. VSS. CALL LIGHT IN REACH.
[2023-10-04 06:13] LABS: Albumin, Blood 3.3 g/dL (3.4-5.0); Albumin/Globulin Ratio 1.1 (0.8-1.8); Bilirubin, Total 0.8 mg/dL (0.1-1.0); Bun/Creatinine Ratio 24.1 (12.0-20.0); Calcium, Blood 8.5 mg/dL (8.5-10.1); Creatinine, Blood 2.91 mg/dL (0.60-1.20); Globulin, Blood 2.9 g/dL (2.2-4.0); Magnesium, Blood 1.6 mg/dL (1.6-2.4); Phosphorus, Blood 3.1 mg/dL (2.5-4.9); Total Protein, Blood 6.2 g/dL (6.4-8.2)
[2023-10-04] MEDS ORDERED: Anticoagulant Sod Citrate Soln 3 ML SYR INJ PRN (07:30)
[2023-10-04] MEDS ORDERED: Torsemide 20 MG TAB PO SCH (09:00)
[2023-10-04] MEDS ORDERED: Metoprolol Succinate 25 MG TABCR PO SCH (09:00)
[2023-10-04] MEDS ORDERED: Lisinopril 5 MG Tab PO SCH (09:00)
[2023-10-04] MEDS ORDERED: Calcitriol 0.25 MCG Cap PO SCH (09:00)
[2023-10-04] MEDS ORDERED: Dutasteride 0.5 MG Cap PO SCH (09:00)
[2023-10-04] MEDS ORDERED: Cholecalciferol 1000 Unit Tablet (=25MCG) PO SCH (09:00)
[2023-10-04] MEDS ORDERED: TraZODone HCl 100 MG Tab PO SCH (09:00)
[2023-10-04] MEDS ORDERED: Atorvastatin 40 MG Tab PO SCH (09:00)
[2023-10-04] MEDS ORDERED: Ondansetron 4 MG TAB PO SCH (12:00)
[2023-10-04] MEDS ORDERED: Ondansetron 4 MG TAB PO PRN (12:13)
[2023-10-04 16:29] LABS: Hematocrit 29.5 % (37.0-53.0); Hemoglobin 9.6 g/dL (13.5-17.5)
[2023-10-04] MEDS ORDERED: Pantoprazole Sodium 40 MG Tab PO SCH (16:30)
--- NOTE | 2023-10-04 17:03 | NUR ---
SHIFT SUMMARY POD 1 EGD PT CONTINUES TO HAVE SMALL DARK BROWN/BLACK BOWEL MOVEMENTS. HAD DIALYSIS THIS MORNING. BLOOD PRESSURES REMAIN SOFT BUT PT DENIES ANY DIZZINESS AND HAS AMBULATED WELL TO RESTROOM. REMAINS ON 2L NASAL CANULA. DENIES ANY INCREASE IN SHORTNESS OF BREATH. TOLERATING DIET WELL. NO NAUSEA OR PAIN REPORTED. HGB STABLE THIS AFTERNOON ON REPEAT CHECK.
[2023-10-04] MEDS ORDERED: Darbepoetin Alfa in Polysorbat 25 MCG/0.42 ML Syringe SC SCH (18:00)
[2023-10-04] MEDS ORDERED: TraZODone HCl 50 MG Tab PO SCH (21:00)
[2023-10-04] MEDS ORDERED: Simethicone 80 MG Chew PO PRN (22:20)
--- NOTE | 2023-10-05 04:18 | NUR ---
SHIFT SUMMARY PT ABLE TO REST MOST OF SHIFT. IND/SB TO BR. VSS. PT REPORTS PASSING LOTS OF FLATUS, NO COMPLAINTS OF ABD PAIN. NO BMS THIS SHIFT. PT WEARING NC 2L, O2 SATS >92%. PT USING CALL LIGHT APPROPRIATELY.
[2023-10-05 05:16] VITALS: BP 104/49
[2023-10-05 05:34] LABS: BASOPHILS ABSOLUTE AUTO 0.05 K/mm3 (0.00-0.23); BASOPHILS PERCENT AUTO 1 % (0-2); EOSINOPHILS ABSOLUTE AUTO 0.58 K/mm3 (0.00-0.68); EOSINOPHILS PERCENT AUTO 8 % (0-6); Hematocrit 26.7 % (37.0-53.0); Hemoglobin 8.6 g/dL (13.5-17.5); IMMATURE GRAN ABSOLUTE AUTO 0.04 K/mm3 (0.00-0.10); IMMATURE GRAN PERCENT AUTO 1 % (0-1); LYMPHOCYTES ABSOLUTE AUTO 1.82 K/mm3 (0.84-5.20); LYMPHOCYTES PERCENT AUTO 26 % (21-46); MONOCYTES ABSOLUTE AUTO 0.75 K/mm3 (0.16-1.47); MONOCYTES PERCENT AUTO 11 % (4-13); Mean Corpuscular HGB 32.5 pg (26.0-34.0); Mean Corpuscular HGB Conc 32.2 g/dL (31.5-36.5); Mean Corpuscular Volume 101 fL (80-100); Mean Platelet Volume 10.4 fL (9.1-12.4); NEUTROPHILS ABSOLUTE AUTO 3.67 K/mm3 (1.96-9.15); NEUTROPHILS PERCENT AUTO 53 % (41-73); Platelet Count 199 K/mm3 (150-400); RDW Coefficient Variation 14.8 % (11.7-14.2); RDW Standard Deviation 54.9 fL (35.1-46.3); Red Blood Cell Count 2.65 M/mm3 (4.30-5.90); White Blood Cell Count 6.91 K/mm3 (4.00-11.30)
[2023-10-05 05:59] LABS: Albumin, Blood 3.1 g/dL (3.4-5.0); Anion Gap 8 mmol/L (3-11); Blood Urea Nitrogen 54 mg/dL (8-24); Bun/Creatinine Ratio 18.8 (12.0-20.0); CO2, Blood 32 mmol/L (21-32); Calcium, Blood 8.4 mg/dL (8.5-10.1); Chloride, Blood 107 mmol/L (98-108); Creatinine, Blood 2.87 mg/dL (0.60-1.20); Glomerular Filtration Rate 21 (60-); Glucose, Blood 113 mg/dL (70-99); Magnesium, Blood 1.7 mg/dL (1.6-2.4); Phosphorus, Blood 2.6 mg/dL (2.5-4.9); Sodium, Blood 143 mmol/L (136-145)
[2023-10-05 07:25] VITALS: BP 100/53
[2023-10-05] MEDS ORDERED: Mag Sulfate 1 GM/D5% 100ML 100 ML IV STA (07:54)
[2023-10-05] MEDS ORDERED: Potassium Phos/Sodium Phos 250 MG PACK PO SCH (08:00)
--- NOTE | 2023-10-05 10:25 | NUR ---
DISCHARGE PT HAS BEEN AMBULATING WELL IN ROOM TODAY. DENIES PAIN OR SHORTNESS OF BREATH. DENIES ANY CONTINUED STOOLS TODAY. TOLERATING DIET WELL. PT PLANS TO FOLLOW UP WITH PCP AND DIALYSIS TOMORROW. ALL INSTRUCTIONS GONE OVER WITH PATIENT. ALL QUESTIONS ANSWERED, TAKEN OUT VIA WHEELCHAIR.
== END 2023-10-05 10:27 | disposition home or self-care (01) | DRG 377 ==
LOC: ER 08:55 → SURS 11:44
PROVIDERS: Emergency Medicine; Internal Medicine Nephrology; Surgery; ADMIT Family Medicine
PROC: 0DJ08ZZ Inspection of Upper Intestinal Tract, Via Natural or Artificial Opening Endoscopic (ICD-10-PCS; principal; 2023-10-03 16:00)
DX: K92.2 Gastrointestinal hemorrhage, unspecified (principal); N18.6 End stage renal disease; I12.0 Hypertensive chronic kidney disease with stage 5 chronic kidney disease or end stage renal disease; K31.89 Other diseases of stomach and duodenum; D63.1 Anemia in chronic kidney disease; E11.22 Type 2 diabetes mellitus with diabetic chronic kidney disease; E11.51 Type 2 diabetes mellitus with diabetic peripheral angiopathy without gangrene; I25.10 Atherosclerotic heart disease of native coronary artery without angina pectoris; E78.5 Hyperlipidemia, unspecified; Z87.891 Personal history of nicotine dependence; Z99.2 Dependence on renal dialysis; Z87.11 Personal history of peptic ulcer disease; E86.9 Volume depletion, unspecified; Z88.8 Allergy status to other drugs, medicaments and biological substances; Z79.82 Long term (current) use of aspirin; Z79.4 Long term (current) use of insulin; Z79.899 Other long term (current) drug therapy; Z79.02 Long term (current) use of antithrombotics/antiplatelets; N18.30 Chronic kidney disease, stage 3 unspecified; J44.9 Chronic obstructive pulmonary disease, unspecified; Z85.528 Personal history of other malignant neoplasm of kidney; Z85.46 Personal history of malignant neoplasm of prostate; Z90.5 Acquired absence of kidney; Z90.49 Acquired absence of other specified parts of digestive tract; Z98.890 Other specified postprocedural states; Z99.81 Dependence on supplemental oxygen; N40.0 Benign prostatic hyperplasia without lower urinary tract symptoms
CPT/HCPCS: 36415; 80053; 80069; 82947; 83735; 84100; 85014; 85018; 85025; 85610; 86900; 86901; 93306; 94640; 94664; 94760; 97162; 97530; A9270; C9113; J0881; J1815; J2704; J3475; J7030

== ENCOUNTER 2023-10-10 01:44 | Day surgery (SDC) | payer MEDICARE ==
[2023-10-10] MEDS ORDERED: NS 250 ML IV SCH ×2 (07:10)
[2023-10-10 14:45] VITALS: BP 101/54
[2023-10-10 15:05] VITALS: BP 95/54
[2023-10-10 16:02] VITALS: BP 121/52
[2023-10-10 16:38] VITALS: BP 99/53
== END 2023-10-10 16:39 | disposition home or self-care (01) ==
LOC: ATC 01:44
DX: D50.9 Iron deficiency anemia, unspecified (principal); I12.0 Hypertensive chronic kidney disease with stage 5 chronic kidney disease or end stage renal disease; N18.6 End stage renal disease; N25.81 Secondary hyperparathyroidism of renal origin; E11.21 Type 2 diabetes mellitus with diabetic nephropathy; D63.1 Anemia in chronic kidney disease; Z79.899 Other long term (current) drug therapy
CPT/HCPCS: 36415; 36430; 86850; 86900; 86901; 86923; J7050; P9016

== ENCOUNTER 2024-10-08 00:48 | Observation (INO) | payer MEDICARE ==
[~2024-10-08] VITALS: Ht 165.1 cm; Wt 63.0 kg
[2024-10-08 01:12] LABS: BASOPHILS ABSOLUTE AUTO 0.04 K/mm3 (0.00-0.23); BASOPHILS PERCENT AUTO 1 % (0-2); EOSINOPHILS ABSOLUTE AUTO 0.50 K/mm3 (0.00-0.68); EOSINOPHILS PERCENT AUTO 6 % (0-6); Hematocrit 29.3 % (37.0-53.0); Hemoglobin 9.7 g/dL (13.5-17.5); IMMATURE GRAN ABSOLUTE AUTO 0.05 K/mm3 (0.00-0.10); IMMATURE GRAN PERCENT AUTO 1 % (0-1); LYMPHOCYTES ABSOLUTE AUTO 1.06 K/mm3 (0.84-5.20); LYMPHOCYTES PERCENT AUTO 13 % (21-46); MONOCYTES ABSOLUTE AUTO 0.72 K/mm3 (0.16-1.47); MONOCYTES PERCENT AUTO 9 % (4-13); Mean Corpuscular HGB Conc 33.1 g/dL (31.5-36.5); Mean Corpuscular Volume 98 fL (80-100); NEUTROPHILS ABSOLUTE AUTO 6.12 K/mm3 (1.96-9.15); NEUTROPHILS PERCENT AUTO 72 % (41-73); NRBC ABSOLUTE 0.00 K/mm3 (0.00-0.02); NRBC Auto 0.0 /100 WBC (0.0-0.2); Platelet Count 173 K/mm3 (150-400); RDW Coefficient Variation 13.0 % (11.7-14.2); RDW Standard Deviation 46.4 fL (35.1-46.3)
[2024-10-08 01:31] LABS: Alanine Aminotransfer (ALT/SGP 22.0 U/L (12-78); Albumin, Blood 3.5 g/dL (3.4-5.0); Albumin/Globulin Ratio 1.2 (0.8-1.8); Anion Gap 12.0 mmol/L (3-11); Aspartate Aminotrans (AST/SGOT 14.0 U/L (12-37); Bilirubin, Total 0.5 mg/dL (0.1-1.0); Blood Urea Nitrogen 97.0 mg/dL (8-24); CO2, Blood 25.0 mmol/L (21-32); Calcium, Blood 8.4 mg/dL (8.5-10.1); Chloride, Blood 105.0 mmol/L (98-108); Creatinine, Blood 3.02 mg/dL (0.60-1.20); Globulin, Blood 3.0 g/dL (2.2-4.0); Glucose, Blood 134.0 mg/dL (70-99); Potassium, Blood 4.5 mmol/L (3.5-5.5); Sodium, Blood 137.0 mmol/L (136-145); Total Protein, Blood 6.5 g/dL (6.4-8.2)
[2024-10-08 02:39] LABS: Prothrombin Time Results 11.7 Sec (9.7-11.5)
[2024-10-08 02:39] LABS: Magnesium, Blood 2.1 mg/dL (1.6-2.4); Total Iron Binding Capacity 246.0 ug/dL (250-450)
[2024-10-08 02:40] LABS: Phosphorus, Blood 3.3 mg/dL (2.5-4.9); Thyroid Stimulating Hormone 3.23 uIU/mL (0.360-4.800)
[2024-10-08] MEDS ORDERED: NS 1,000 ML IV SCH ×2 (03:50→19:35)
[2024-10-08] MEDS ORDERED: Pantoprazole Sodium 40 MG Injection IV SCH ×2 (04:00→11:00)
[2024-10-08 04:25] LABS: Source, Urine Clean Catch
[2024-10-08] MEDS ORDERED: NS 1,000 ML IV ONE (04:27)
[2024-10-08 04:29] LABS: Hematocrit 28.0 % (37.0-53.0); Hemoglobin 9.1 g/dL (13.5-17.5)
[2024-10-08 04:59] LABS: Bilirubin, Urine Neg (Neg); Glucose Qualitative, Urine Neg (Neg); Ketones, Urine Neg (Neg); Leukocyte Esterase, Urine Neg (Neg); Protein, Urine 1+ (Neg); Specific Gravity, Urine 1.015 (1.003-1.022); Urobilinogen, Urine NORM (Normal)
[2024-10-08 05:10] LABS: Color, Urine Pale Yellow (P-Yellow)
[2024-10-08 06:53] LABS: Hematocrit 29.1 % (37.0-53.0); Hemoglobin 9.6 g/dL (13.5-17.5)
[2024-10-08] MEDS ORDERED: Formoterol/Mometasone MDI 5/200 mcg 13 GM INH SCH (11:00)
[2024-10-08] MEDS ORDERED: Insulin Human Lispro 100 Units/ML 3ML Syringe SC SCH (12:00)
[2024-10-08] MEDS ORDERED: Lidocaine HCl 2% 20 MG/ML 5ML SYR IV ONE (13:09)
[2024-10-08] MEDS ORDERED: Propofol 10mg/ml 20 ml Vial (Procedural) IV ONE (13:09)
[2024-10-08] MEDS ORDERED: Phenylephrine HCl 100 MCG/ML-NS 10MLSYR (1MG/10ML) IV ONE (13:09)
[2024-10-08 13:15] VITALS: BP 131/60
[2024-10-08 13:25] LABS: Hematocrit 23.8 % (37.0-53.0); Hemoglobin 7.7 g/dL (13.5-17.5)
[2024-10-08 13:48] LABS: BASOPHILS ABSOLUTE AUTO 0.04 K/mm3 (0.00-0.23); BASOPHILS PERCENT AUTO 1 % (0-2); EOSINOPHILS ABSOLUTE AUTO 0.29 K/mm3 (0.00-0.68); EOSINOPHILS PERCENT AUTO 4 % (0-6); Hematocrit 29.7 % (37.0-53.0); Hemoglobin 9.8 g/dL (13.5-17.5); IMMATURE GRAN ABSOLUTE AUTO 0.03 K/mm3 (0.00-0.10); IMMATURE GRAN PERCENT AUTO 0 % (0-1); LYMPHOCYTES ABSOLUTE AUTO 1.33 K/mm3 (0.84-5.20); LYMPHOCYTES PERCENT AUTO 19 % (21-46); MONOCYTES ABSOLUTE AUTO 0.61 K/mm3 (0.16-1.47); MONOCYTES PERCENT AUTO 9 % (4-13); Mean Corpuscular HGB Conc 33.0 g/dL (31.5-36.5); Mean Corpuscular Volume 99 fL (80-100); NEUTROPHILS ABSOLUTE AUTO 4.69 K/mm3 (1.96-9.15); NEUTROPHILS PERCENT AUTO 67 % (41-73); NRBC ABSOLUTE 0.00 K/mm3 (0.00-0.02); NRBC Auto 0.0 /100 WBC (0.0-0.2); Platelet Count 184 K/mm3 (150-400); RDW Coefficient Variation 13.1 % (11.7-14.2); RDW Standard Deviation 47.2 fL (35.1-46.3)
[2024-10-08] MEDS ORDERED: ADVAIR HFA 230-28 GM INH (14:07)
[2024-10-08] MEDS ORDERED: RABEPRAZOLE SOD20 MG PO (14:08)
[2024-10-08 14:32] LABS: Albumin, Blood 3.4 g/dL (3.4-5.0); Anion Gap 5 mmol/L (3-11); Blood Urea Nitrogen 90 mg/dL (8-24); CO2, Blood 29 mmol/L (21-32); Calcium, Blood 8.5 mg/dL (8.5-10.1); Chloride, Blood 109 mmol/L (98-108); Creatinine, Blood 2.93 mg/dL (0.60-1.20); Glucose, Blood 102 mg/dL (70-99); Phosphorus, Blood 3.6 mg/dL (2.5-4.9); Potassium, Blood 4.8 mmol/L (3.5-5.5); Sodium, Blood 138 mmol/L (136-145)
--- NOTE | 2024-10-08 15:12 | NUR ---
ADMISSION NOTE MR MONET WAS ADMITTED FROM ER AT 1310HRS, VIA GUERNEY TO MEDICAL UNIT. HE IS ORIENTATED X 4. APPROPRIATE CONVERSATION AND DENIES FORGETFULNESS. HE HAS AN OCCASIONAL COUGH, REPORTS EXPECTORATING OCCASIONAL WHITE SPUTUM, NON SEEN. HE IS ON OXYGEN 2L NC ON ACTIVITY AND AT NIGHT AT HOME. PUT ON CONTINUOUS PULSE OX AFTER BSC USE WHEN SATS IN HIGH 80S. WILL WEAN WHEN AWAKE TO 92% SAT. HE HAS VOIDED BUT NO BM SINCE ADMISSION. CONSULT CALLED IN TO DR SIDHU AND DR LANE. PT FINISHED NS AT 100CC/HR AND IS NPO. HE DENIES ANY PAIN OR NAUSEA. PHARMACIST WORKING ON MED LIST RN CALLED ONLINE PHARMACY SEVERAL TIMES WITHOUT SUCCESSFUL MED REC. BED LOW, CALL LIGHT IN REACH, BED ALARM ON D/T RECENT LIGHTHEADEDNESS AND FALLS. PT VERBALISED UNDERSTANDING OF FALL PRECAUTIONS.
[2024-10-08] MEDS ORDERED: INSULIN DE100 UNIT/1 SC (16:22)
--- NOTE | 2024-10-08 16:26 | NUR ---
RN NOTE [facility] PHARMACIST WORKED ON MED RECONCILIATION. AWAITING FAX FROM [employer] TO COMPLETE IT. DR LANE ORDERED FOR PT TO HAVE CLEAR LIQUIDS UNTIL 4AM THEN NPO FOR EGD TOMORROW. TELE SR, NO CALLS FROM [facility]. RESTING ON ROOM AIR WITH SAT IN THE 90S NOW.
[2024-10-08 17:16] VITALS: BP 115/59
[2024-10-08] MEDS ORDERED: Albuterol 2.5 MG/3 ML VIAL INH PRN (17:50)
[2024-10-08 19:12] VITALS: BP 124/66
[2024-10-08] MEDS ORDERED: Darbepoetin (Pharmacy Consult) SC SCH (19:35)
[2024-10-08] MEDS ORDERED: Darbepoetin Alfa In Albumn Sol 40 MCG/0.4 ML SC SCH (22:00)
[2024-10-09 04:36] VITALS: BP 107/63
[2024-10-09 05:00] LABS: BASOPHILS ABSOLUTE AUTO 0.01 K/mm3 (0.00-0.23); BASOPHILS PERCENT AUTO 0 % (0-2); EOSINOPHILS ABSOLUTE AUTO 0.01 K/mm3 (0.00-0.68); EOSINOPHILS PERCENT AUTO 0 % (0-6); Hematocrit 27.0 % (37.0-53.0); Hemoglobin 8.9 g/dL (13.5-17.5); IMMATURE GRAN ABSOLUTE AUTO 0.03 K/mm3 (0.00-0.10); IMMATURE GRAN PERCENT AUTO 1 % (0-1); LYMPHOCYTES ABSOLUTE AUTO 0.41 K/mm3 (0.84-5.20); LYMPHOCYTES PERCENT AUTO 6 % (21-46); MONOCYTES ABSOLUTE AUTO 0.04 K/mm3 (0.16-1.47); MONOCYTES PERCENT AUTO 1 % (4-13); Mean Corpuscular HGB Conc 33.0 g/dL (31.5-36.5); Mean Corpuscular Volume 99 fL (80-100); NEUTROPHILS ABSOLUTE AUTO 6.07 K/mm3 (1.96-9.15); NEUTROPHILS PERCENT AUTO 92 % (41-73); NRBC ABSOLUTE 0.00 K/mm3 (0.00-0.02); NRBC Auto 0.0 /100 WBC (0.0-0.2); Platelet Count 175 K/mm3 (150-400); RDW Coefficient Variation 13.1 % (11.7-14.2); RDW Standard Deviation 46.5 fL (35.1-46.3)
[2024-10-09 05:24] LABS: Alanine Aminotransfer (ALT/SGP 21.0 U/L (12-78); Albumin, Blood 3.3 g/dL (3.4-5.0); Albumin/Globulin Ratio 1.1 (0.8-1.8); Anion Gap 7.0 mmol/L (3-11); Aspartate Aminotrans (AST/SGOT 13.0 U/L (12-37); Bilirubin, Total 0.6 mg/dL (0.1-1.0); Blood Urea Nitrogen 80.0 mg/dL (8-24); CO2, Blood 25.0 mmol/L (21-32); Calcium, Blood 8.0 mg/dL (8.5-10.1); Chloride, Blood 109.0 mmol/L (98-108); Creatinine, Blood 2.81 mg/dL (0.60-1.20); Globulin, Blood 3.0 g/dL (2.2-4.0); Glucose, Blood 177.0 mg/dL (70-99); Magnesium, Blood 2.1 mg/dL (1.6-2.4); Phosphorus, Blood 3.2 mg/dL (2.5-4.9); Potassium, Blood 5.1 mmol/L (3.5-5.5); Sodium, Blood 136.0 mmol/L (136-145); Total Protein, Blood 6.3 g/dL (6.4-8.2)
--- NOTE | 2024-10-09 05:30 | NUR ---
Shift Summary AOx4. Appropriate call light useage. Pt has been up to the bedside commode throughout the night. Voiding well. Tele: SR [id number]. Planning for EGD later today. Denies dizziness, syncope, pain. 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 No stool this shift. NS @ 50. VSS. Call light in reach.
[2024-10-09 08:10] VITALS: BP 103/56
[2024-10-09 09:38] VITALS: BP 117/59
--- NOTE | 2024-10-09 09:53 | NUR ---
10/09/24 0953 Cade Wolfe History, Chart, Medications and Allergies reviewed before start of procedure. MONITOR INTACT WITH CONTINUOUS PULSE OXIMETRY, CONTINUOUS END TITAL CO2, 3-LEAD EKG AND INTERMITTENT BLOOD PRESSURE. 3-LEAD EKG REVIEWED WITH PHYSICIAN PRIOR TO START OF PROCEDURE. O2 VIA POM INTACT THROUGHOUT SEDATION/PROCEDURE.
--- NOTE | 2024-10-09 09:58 | NUR ---
ALL BELONGINGS LEFT IN PT'S ROOM. SWING FRAME GRINDER OPERATOR NOTIFIED OF PT GOING TO DAY SURGERY. TELE BOX REMOVED DURING PROCEDURE. PT ABLE TO TRANSFER TO [facility] WITH STANDBY ASSISTANCE.
[2024-10-09 10:27] VITALS: BP 116/60
[2024-10-09 11:00] VITALS: BP 119/60
--- NOTE | 2024-10-09 14:23 | NUR ---
0700-ASSUMED CARE OF PATIENT. PATIENT IS AWAKE. ALERT AND ORIENTED. OFFERS NO COMPLAINTS. NPO STATUS MAINTAINED IN ANTICIPATION OF EEG THIS AM CALL LIGHT WITHIN REACH
--- NOTE | 2024-10-09 14:32 | NUR ---
DISCHARGE ORDERS RECEIVED AND CARRIED OUT. IV DISCONTINUED, CANNULA INTACT. PATIENT TOLERATED WELL ASSISTED IN GETTING DRESSED. DISCHARGE INSTRUCTIONS REVIEWED WITH PATIENT AND PATIENT SON. TIME ALLOWED FOR QUESTIONS. ASKED AND ANSWERED. PATIENT INFORMED TO CALL PCP ON FRIDAY TO VERIFY APPOINTMENT DATE AND TIME. AGREES. ENCOURAGED TO CALL MEDICAL FLOOR WITH ANY QUESTIONS OR CONCERNS. AGREES DISCHARGED VIA WC TO PRIVATE VEHICLE ACCOMPANIED BY SON
== END 2024-10-09 14:16 | disposition home or self-care (01) ==
LOC: ER 00:48 → MEDS 03:45 → ERHOLD 03:45 → MEDS 13:10
PROVIDERS: Emergency Medicine; Family Medicine; Surgery; ADMIT Internal Medicine
PROC: 0W3P8ZZ Control Bleeding in Gastrointestinal Tract, Via Natural or Artificial Opening Endoscopic (ICD-10-PCS; principal; 2024-10-09 09:00)
DX: K31.811 Angiodysplasia of stomach and duodenum with bleeding (principal); I12.0 Hypertensive chronic kidney disease with stage 5 chronic kidney disease or end stage renal disease; E11.22 Type 2 diabetes mellitus with diabetic chronic kidney disease; N18.6 End stage renal disease; E11.51 Type 2 diabetes mellitus with diabetic peripheral angiopathy without gangrene; J44.9 Chronic obstructive pulmonary disease, unspecified; E86.9 Volume depletion, unspecified; D64.9 Anemia, unspecified; I95.9 Hypotension, unspecified; E87.5 Hyperkalemia; I25.10 Atherosclerotic heart disease of native coronary artery without angina pectoris; Z99.2 Dependence on renal dialysis; Z87.891 Personal history of nicotine dependence; Z99.81 Dependence on supplemental oxygen; Z88.8 Allergy status to other drugs, medicaments and biological substances; Z79.4 Long term (current) use of insulin; Z79.899 Other long term (current) drug therapy
CPT/HCPCS: 36415; 70450; 71046; 74174; 80053; 80069; 82947; 83540; 83550; 83690; 83735; 84100; 84443; 84484; 85014; 85018; 85025; 85610; 86850; 86900; 86901; 93005; 93010; 94640; 94664; 94760; 94762; 96372; 96374; 96374-59; 96375; 96376; 96376-59; 99285-25; A9270; G0378; J0881; J2003; J2371; J2470; J2704; J2919; J7030; Q9967

== ENCOUNTER → 2024-10-13 | Outpatient (CLI) | payer MEDICARE ==
[~2024-10-13] MED LIST changes: +ADVAIR HFA 230-28 GM INH; +INSULIN DE100 UNIT/1 SC; +RABEPRAZOLE SOD20 MG PO
[2024-10-13 11:40] LABS: BASOPHILS ABSOLUTE AUTO 0.03 K/mm3 (0.00-0.23); BASOPHILS PERCENT AUTO 0 % (0-2); EOSINOPHILS ABSOLUTE AUTO 0.33 K/mm3 (0.00-0.68); EOSINOPHILS PERCENT AUTO 5 % (0-6); Hematocrit 29.6 % (37.0-53.0); Hemoglobin 9.7 g/dL (13.5-17.5); IMMATURE GRAN ABSOLUTE AUTO 0.03 K/mm3 (0.00-0.10); IMMATURE GRAN PERCENT AUTO 0 % (0-1); LYMPHOCYTES ABSOLUTE AUTO 1.24 K/mm3 (0.84-5.20); LYMPHOCYTES PERCENT AUTO 18 % (21-46); MONOCYTES ABSOLUTE AUTO 0.73 K/mm3 (0.16-1.47); MONOCYTES PERCENT AUTO 11 % (4-13); Mean Corpuscular HGB Conc 32.8 g/dL (31.5-36.5); Mean Corpuscular Volume 96 fL (80-100); NEUTROPHILS ABSOLUTE AUTO 4.56 K/mm3 (1.96-9.15); NEUTROPHILS PERCENT AUTO 66 % (41-73); NRBC ABSOLUTE 0.00 K/mm3 (0.00-0.02); NRBC Auto 0.0 /100 WBC (0.0-0.2); Platelet Count 186 K/mm3 (150-400); RDW Coefficient Variation 13.7 % (11.7-14.2); RDW Standard Deviation 47.7 fL (35.1-46.3)
[2024-10-13 14:41] LABS: Anion Gap 10.0 mmol/L (3-11); Blood Urea Nitrogen 60.0 mg/dL (8-24); CO2, Blood 27.0 mmol/L (21-32); Calcium, Blood 8.5 mg/dL (8.5-10.1); Chloride, Blood 103.0 mmol/L (98-108); Creatinine, Blood 2.72 mg/dL (0.60-1.20); Glucose, Blood 140.0 mg/dL (70-99); Potassium, Blood 4.3 mmol/L (3.5-5.5); Sodium, Blood 136.0 mmol/L (136-145)
== END | disposition home or self-care (01) ==
LOC: LAB 11:33 → LAB SHORT 11:33
PROVIDERS: Family Medicine
DX: D64.9 Anemia, unspecified (principal); R42 Dizziness and giddiness
CPT/HCPCS: 80048; 85025

== ENCOUNTER → 2025-01-19 | Outpatient (CLI) | payer MEDICARE | LOC: LAB 08:01 → LAB SHORT 08:01 | DX: C44.91 Basal cell carcinoma of skin, unspecified (principal) | CPT/HCPCS: 88305 ==

== ENCOUNTER → 2025-02-08 | Outpatient (CLI) | payer MEDICARE ==
[2025-02-10 12:30] LABS: Stool Occult Bld Immuno 1 Positive (NEGATIVE)
== END | disposition home or self-care (01) ==
LOC: LAB 18:00 → LAB SHORT 18:00
PROVIDERS: Physician Assistant Medical
DX: K31.819 Angiodysplasia of stomach and duodenum without bleeding (principal)
CPT/HCPCS: 82274